=== PATIENT | male | born 1970 | race African-American/Black ===

== ENCOUNTER 2016-08-12 23:17 | Emergency (ER) | payer BC, MEDICAID ==
--- NOTE | 2016-08-13 00:20 | NUR ---
CALLED FOR PT NO ANSWER.WILL TRY AGAIN
--- NOTE | 2016-08-13 00:55 | NUR ---
CALLED FOR PT NO ANSWER LWBT
== END 2016-08-13 00:56 | disposition left against medical advice (07) ==
LOC: ER 23:19
DX: Z53.21 Procedure and treatment not carried out due to patient leaving prior to being seen by health care provider (principal)

== ENCOUNTER 2017-04-06 18:46 | Emergency (ER) | payer MEDICAID ==
[~2017-04-06] VITALS: Ht 182.9 cm; Wt 76.7 kg
[2017-04-06] MEDS ORDERED: IBUPROFEN PO (19:02)
[2017-04-06] MEDS ORDERED: HYDROCODONE/APAP 10-325 MG TABLET PO ONE (22:00)
--- NOTE | 2017-04-06 22:11 | NUR ---
Patient discharged to home in stable conditon. Written and verbal after care instructions given. Patient verbalizes understanding of instructions.
== END 2017-04-06 22:13 | disposition home or self-care (01) ==
LOC: ER 18:47
DX: K08.89 Other specified disorders of teeth and supporting structures (principal)
CPT/HCPCS: A4663

== ENCOUNTER 2017-12-24 11:00 | Emergency (ER) | payer BC, MEDICAID, OTHER ==
[~2017-12-24] VITALS: Ht 182.9 cm; Wt 76.2 kg
[~2017-12-24 11:00] MED LIST: IBUPROFEN PO
[2017-12-24] MEDS ORDERED: HYDR-3326 PO (11:11)
[2017-12-24] MEDS ORDERED: LORA-259 PO (11:11)
[2017-12-24] MEDS ORDERED: KETOROLAC TROMETHAMINE 30 MG INJ IM ONE (11:30)
[2017-12-24] MEDS ORDERED: KETOROLAC TROMETHAMINE 30 MG INJ ONE (11:30)
--- NOTE | 2017-12-24 11:36 | NUR ---
Patient discharged to home in stable conditon. Written and verbal after care instructions given. Patient verbalizes understanding of instructions.pt walks in steady gait.
[2017-12-24 11:37] VITALS: BP 134/98
== END 2017-12-24 11:38 | disposition home or self-care (01) ==
LOC: ER 11:00
DX: M75.92 Shoulder lesion, unspecified, left shoulder (principal)
CPT/HCPCS: A4663; J1885